=== PATIENT | male | born 1975 | race African-American/Black ===

== ENCOUNTER 2017-02-20 19:41 | Emergency (ER) | payer MEDICAID ==
[~2017-02-20] VITALS: Ht 167.6 cm; Wt 99.4 kg
[2017-02-20 20:18] VITALS: BP 120/77
== END 2017-02-20 21:40 | disposition left against medical advice (07) ==
LOC: ER 21:35
DX: R07.9 Chest pain, unspecified (principal); Z53.21 Procedure and treatment not carried out due to patient leaving prior to being seen by health care provider